=== PATIENT | male | born 1965 | race Caucasian/White ===

== ENCOUNTER 2022-03-06 15:52 | Outpatient (CLI) | payer OTHER | END 2022-03-06 16:04 | disposition home or self-care (01) | LOC: LAB 15:52 | PROVIDERS: ATTEND Urology | DX: R97.20 Elevated prostate specific antigen [PSA] (principal) ==

== ENCOUNTER 2022-07-03 07:17 | Outpatient (CLI) | payer OTHER | END 2022-07-03 07:28 | disposition home or self-care (01) | LOC: SONOGRAMA 07:17 | PROVIDERS: ATTEND Urology | DX: R97.20 Elevated prostate specific antigen [PSA] (principal) ==